=== PATIENT | female | born 1930 | race Caucasian/White ===

== ENCOUNTER → 2016-07-06 | Outpatient (CLI) | payer OTHER, BC ==
--- NOTE | 2016-07-06 16:31 | MA ---
Screening Digital Mammogram With iCAD Analysis Clinical Indications: Routine screening. The patient has had benign breast biopsy. Technique: Standard cephalocaudal and mediolateral oblique projections were obtained. This examinatio n was processed by the [employer] computer aided detection system. Comparison: May 2015, April 2014, March 2014, February 2013, September 2010, August 2009. Breast density: Type B; Scattered fibroglandular densities. Findings: CAD was reviewed. No masses, suspicious calcifications or other signs of malignancy are id entified. There has been no significant change in the appearance of either breast. Vascular calcifi cations are noted. Impression: Negative mammogram. BI-RADS 1. Recommendation: Routine mammographic screening in one year. [facility] will send a result letter to the patient. Negative mammography should not preclude additional workup of a clinically suspicious finding. The patient's information is entered into a reminder system with a target due date for her next mammo gram.
== END ==
LOC: FIMAGING 11:53
DX: Z12.31 Encounter for screening mammogram for malignant neoplasm of breast (principal)
CPT/HCPCS: G0202

== ENCOUNTER 2016-09-11 09:26 | Emergency (ER) | payer OTHER, BC ==
[2016-09-11 09:34] VITALS: PULSE 83; RESP 18; TEMP 98.1
--- NOTE | 2016-09-11 09:41 | EDPHY ---
H & P Stated Complaint: L hip pain since yesterday;no known injury;pain only w/weight bearing HPI/ROS: CHIEF COMPLAINT: Left hip pain. HISTORY OF PRESENT ILLNESS: The patient is an 86-year-old female who presents with atraumatic left posterior hip pain that began yesterday morning when she got up. The pain has worsened steadily over that period of time. It is worsened with walking. She normally walks with a hiking pole (for balance) but has had increased difficulty with this today. She denies numbness, weakness, or paresthesias down her left leg. No dizziness, urinary symptoms, nausea, recent sickness, or other complaints. She has no history of similar symptoms. She has a history of lower back pain and lumbar fusion but this feels different. She is anticoagulated on Eliquis. She has been treating the pain with Tylenol. REVIEW OF SYSTEMS: A ten point review of systems was performed and is negative with the exception of the items mentioned in the HPI. Source: Patient Exam Limitations: No limitations - Personal History Current Tetanus Diphtheria and Acellular Pertussis (TDAP): Unsure Tetanus Vaccine Date: 2007 - Medical/Surgical History Hx Asthma: No Hx Chronic Respiratory Disease: No Hx Diabetes: No Hx Cardiac Disease: Yes Hx Renal Disease: No Hx Cirrhosis: No Hx Alcoholism: No Hx HIV/AIDS: No Hx Splenectomy or Spleen Trauma: No Other PMH: 1. Multiple PEs. 2. HTN. 3. Arthritis - Social History Smoking Status: Never smoked Additional Social History: Nonsmoker. Corey Alfonso. - Physical Exam Exam: General Appearance: Alert. Vital signs reviewed. BP 142/87. Focused exam performed. Respiratory: Lungs are clear to auscultation; no wheezes, rales, or rhonchi. Distant lung sounds. Cardiovascular: Regular rate and rhythm; rub, or gallop. 3/6 murmur. Gastrointestinal: Abdomen is soft and nontender, no masses or organomegaly, bowel sounds normal. Skin: Warm and dry, no rashes on exposed skin, normal color. Back: Nontender to palpation over the thoracolumbar spine. No CVAT. Thoracic Kyphosis. Extremities: Trace bilateral lower extremity edema, no calf tenderness or swelling. Left hip pain with internal and external rotation. Full active range of motion left hip. Pulses: 2+ left femoral pulse. Neurological: Alert and oriented. Moving all four extremities easily and equally. Psychiatric: Normal affect. Constitutional: Initial Vital Signs Temperature (C) 36.7 C 09/11/16 09:28 Heart Rate 83 09/11/16 09:28 Respiratory Rate 18 09/11/16 09:28 Blood Pressure 142/87 H 09/11/16 09:28 O2 Sat (%) 95 09/11/16 09:28 O2 Delivery Mode Room Air Allergies/Adverse Reactions: moxifloxacin HCl [From Avelox] Allergy (Unknown, Verified 09/11/16 09:27) Home Medications: Medication Instructions Recorded Levothyroxine [Synthroid 25 mcg 25 mcg PO DAILY06 01/31/12 (RX)] Lisinopril [Zestril 10 mg (RX)] 10 mg PO DAILY 01/31/12 Apixaban [Eliquis] 5 mg PO 09/11/16 Atorvastatin Calcium [Lipitor 20 20 mg PO DAILY 09/11/16 mg (*)] Carvedilol [Coreg (*)] 6.25 mg PO BIDMEAL 09/11/16 amLODIPine BESYLATE [Norvasc 5 mg 5 mg PO DAILY 09/11/16 (*)] Medical Decision Making - Diagnostics Imaging: X-ray left hip performed and reviewed by me in PACs. No fracture dislocation. Evidence of lumbar spine fusion. ED Course/Re-evaluation: 86-year-old female presents with atraumatic left hip pain since yesterday. This pain is worsened with walking. She denies dizziness, urinary symptoms, or other complaints. On exam she does have some pain with internal and external rotation of the left leg. She localizes the pain to the left posterior hip above the buttock. She is neurovascularly intact distal to the pain. She denies numbness, weakness, or paresthesias down her leg. We will check a left hip x-ray. I independently reviewed the patient's left hip x-ray on the PACS system. 1050: Reassessed patient. Discussed results of x-ray. She is comfortable going home and seeing Dr. Castro next week for reevaluation. We will give her a dose of Tylenol here. She does not take anti-inflammatory medication because she is on a blood thinner. No evidence of fracture dislocation on x-ray. She has a normal neurologic exam. Her pain is not radicular. This could nevertheless be pain emanating from her lumbar spine. Her history has features of bursitis. I do not suspect infection. - Data Points Medications Given: Discontinued Medications Acetaminophen (Tylenol) 650 mg PO EDNOW ONE Stop: 09/11/16 10:57 Last Admin: 09/11/16 11:12 Dose: 650 mg Departure - Departure Disposition: Home, Routine, Self-Care Clinical Impression: Left hip pain Condition: Good Instructions: Hip Pain (ED) Additional Instructions: Take 650mg Tylenol every 4-6 hours while awake as needed for pain. Do not exceed 3000mg Tylenol in one 24 hour period. Follow up with your primary care provider for reevaluation. Call on Tuesday to set up an appointment. You can try some of the over the counter wart medication on your right foot. Return to the emergency department if you experience any serious worsening of condition--unable to walk at all because of pain, redness or warmth of the skin on your hip, fever, new numbness or weakness. Referrals: WILFREDO CASTRO [Primary Care Provider] - As per Instructions Report Scribed for: Joellen Curtis Report Scribed by: Samson Negrete Date of Report: 09/11/16 Time of Report: 09:50 Physician Review and Approval Statement: 09/11/16 09:41 Portions of this note were transcribed by the medical professionals. I, Dr. Joellen Curtis, personally performed the history, physical exam, and medical decision- making; and confirmed the accuracy of the information in the transcribed note.
[2016-09-11] MEDS ORDERED: ACETAMINOPHEN 325 MG TAB PO ONE (10:56)
[2016-09-11 11:14] VITALS: BP 148/71; O2SAT 94
== END 2016-09-11 11:13 | disposition home or self-care (01) ==
DX: M25.552 Pain in left hip (principal); I10 Essential (primary) hypertension

== ENCOUNTER → 2017-04-04 | Outpatient (CLI) | payer OTHER, BC | LOC: BHFA 11:30 | PROVIDERS: ATTEND Internal Medicine Cardiovascular Disease | DX: I35.9 Nonrheumatic aortic valve disorder, unspecified (principal) ==

== ENCOUNTER → 2017-09-01 | Outpatient (CLI) | payer OTHER, BC ==
--- NOTE | 2017-10-18 13:59 | GCON ---
[f rep st] CONSULTATION [facility] CONSULTATION DATE OF CONSULTATION: 06/01/2017 CHIEF COMPLAINT: Wound on plantar surface of 1st metatarsal head. HISTORY OF PRESENT ILLNESS: 86-year-old woman who developed a wound on the plantar aspect of her indu t. She had an abscess. An incision and drainage were performed by her marketing representative. She continues to have pain out of proportion in the area. She had an x-ray as well as an MRI performed. There was n o evidence of osteomyelitis or underlying fluid collection. She has been using an insert in the darby om of her shoe to help redistribute pressure to the area. She denies any redness, swelling, fevers o r chills. She reports that she no longer has an open wound in the area, this has healed and she now has a callus. PAST MEDICAL HISTORY: Hyperlipidemia, hypertension, hypothyroidism, history of PE in 2005 and 2010. ALLERGIES: No known drug allergies. FAMILY HISTORY: Significant for myocardial infarction. SOCIAL HISTORY: She denies tobacco, alcohol or recreational drug use. She has 3 children. REVIEW OF SYSTEMS: 10-point review of systems negative aside from HPI. PHYSICAL EXAMINATION: GENERAL: A pleasant, well-developed, well-nourished woman in no acute distres s. HEENT: Normocephalic, atraumatic. No hearing deficits. Pupils equal and round. No scleral ict erus. Mucous membranes moist. NECK: Trachea midline. RESPIRATORY: Clear to auscultation bilatera lly. No increased work of breathing. CARDIOVASCULAR: No peripheral edema. 2+ DP and PT pulses rig ht lower extremity. SKIN: There is a callus on the plantar surface of her right 1st metatarsal head . There is no open wound. There is no surrounding erythema. Her right foot is nontender to palpati on. PSYCH: Mood and affect normal. NEURO: Grossly intact. IMPRESSION AND PLAN: 86-year-old woman with a callus on the plantar aspect of her right 1st metatars al head. There is no open wound to the area. I recommended a cut out insert to remove pressure from this area to allow pain relief. We also discussed a protective dressing to prevent callus formation . May consider referral to [facility] if the callus reaccumulates. She will return to the clinic as needed. Call with worsening symptoms, questions, or concerns. Case discussed with Dr. Kylee lepe. /[id number]/MODL
== END ==
LOC: FIMAGING 12:07
PROVIDERS: ATTEND Family Medicine
DX: Z12.31 Encounter for screening mammogram for malignant neoplasm of breast (principal); Z85.038 Personal history of other malignant neoplasm of large intestine

== ENCOUNTER → 2018-09-20 | Outpatient (CLI) | payer OTHER, BC | LOC: BHFA 14:00 | PROVIDERS: ATTEND Internal Medicine Cardiovascular Disease | DX: R01.1 Cardiac murmur, unspecified (principal) ==

== ENCOUNTER → 2018-10-09 | Outpatient (CLI) | payer OTHER, BC | LOC: BHFA 16:15 | PROVIDERS: ATTEND Internal Medicine Cardiovascular Disease | DX: I35.1 Nonrheumatic aortic (valve) insufficiency (principal); R01.1 Cardiac murmur, unspecified ==

== ENCOUNTER → 2018-10-24 | Day surgery (SDC) | payer OTHER, BC ==
[~2018-10-24] MED LIST: ASPIRIN EC 325 MG TAB PO ONE; ATROPINE SULFATE 1 MG/10 ML SYR IVP PRN; CLOPIDOGREL BISULFATE 75 MG TAB ONE; CLOPIDOGREL BISULFATE 75 MG TAB PO ONE; DIAZEPAM 5 MG TAB PO ONE; FAMOTIDINE 20 MG TAB PO ONE; HYDROCODONE/APAP 5/325 TAB PO PRN; IOPAMIDOL (ISOVUE 370) 100 ML BTL IV ONE; IOPAMIDOL (ISOVUE-370) 150 ML BTL IV ONE; LIDOCAINE 1% 5 ML SDV ONE; MIDAZOLAM 2 MG/2 ML VIAL ONE; NITROGLYCERIN 0.4 MG BTL SL PRN; NS 1,000 ML IV ONE; ONDANSETRON 4 MG/2 ML VIAL IVP PRN; OXYCODONE/APAP 5/325 TAB PO PRN; diphenhydrAMINE 25 MG CAP PO ONE; fentaNYL 100 MCG/2 ML INJ ONE
--- NOTE | 2018-10-24 06:30 | PDPROPOC ---
Sedation Plan of Care Sedation Plan of Care: mental status noted, patient educated of risks, benefits , alternatives, patient can tolerate sedation ASA Classification: ASA 2 Planned drugs: fentanyl, midazolam Mallampati Score: Class 2 Mallampati Reference Image: Patient passed 3-3-2 rule?: Yes
--- NOTE | 2018-10-24 06:30 | PDHPUP ---
History & Physical Update H&P update statement: This history and physical update is based on an assessment of the patient which was completed after admission or registration (within 24 hours), but prior to the surgery/procedure. H&P update: H&P reviewed & patient examined, no change in patient's condition since H&P completed
[2018-10-24 06:56] LABS: PLATELET COUNT 343 10^3/uL (150-400)
[2018-10-24 07:08] LABS: INR 0.91 (0.83-1.16); PROTIME(PATIENT) 11.9 SEC (12.0-15.0)
--- NOTE | 2018-10-24 08:38 | ECHO ---
[email or web address] [address] Main: [phone] Echocardiography Examination Transthoracic Name: DEMETRIA ROTHMAN MR#: [id number] Study Date: 10/24/2018 Study Time: 07:25 AM Date of : 1930 Age: 88 year(s) Height: 157.5 cm (62 in.) Weight: 59.87 kg (132 lb.) BSA: 1.6 m2 Gender: Female Examination: Limited Echo Contrast: Image Quality: Adequate Rhythm: Heart Rate: BP: / Indication: Aortic stenosis Procedure Staff Referring Physician: Yarn Preparation Supervisor: Latasha Royal [facility] Reading Physician: Terence Espinoza MD Requesting Provider: Ordering Physician: Terence Espinoza MD Indication: Aortic stenosis Measurements Chambers AV/MV Label Value Normal Value Label Value Normal Value LVOTd 2 cm (1.8cm - 2cm) AV PGmax 47 mmHg LVOT VTI 22.6 cm (18cm - 22cm) AV PGmean 26 mmHg LVOT PGmean 2 mmHg AV Vmax 3.43 m/s LVOT Vmean 0.71 m/s BRANDI (VTI) 0.8 cm2 Conclusions Aortic Valve: There is severe aortic stenosis. Aortic Valve Measurements BRANDI (VTI) is 0.8 cm2. Findings Aortic Valve: There is severe aortic stenosis. Aortic leaflets exhibit severe calcification. The aortic valve is trileaflet. Aortic Valve Measurements Patient: DEMETRIA ROTHMAN Study Date: 10/24/2018 Page 1 of 2 07:25 AM AV Vmax is 3.43 m/s. AV PGmax is 47 mmHg. AV PGmean is 26 mmHg. LVOT VTI / AV VTI is 0.26. BRANDI (VTI) is 0.8 cm2. Exam Details Procedure Ordered: Limited Echo Image Quality: Adequate (No Signature Object) Patient: DEMETRIA ROTHMAN Study Date: 10/24/2018 Page 2 of 2 07:25 AM [id number]
--- NOTE | 2018-10-24 10:09 | CPIP ---
[f rep st] INVASIVE CARDIAC PROCEDURE DATE OF PROCEDURE: 10/24/2018 INDICATIONS FOR PROCEDURE: Shortness of breath, severe aortic stenosis. PROCEDURES PERFORMED: 1. Nonselective left groin sheathogram. 2. 7-Stateless sheath in the left common vein. 3. Right heart catheterization with [place] catheter. 4. Bilateral coronary angiography. 5. Abdominal angiogram. HISTORY: Briefly, an 88-year-old female with history of severe symptomatic aortic stenosis. The pat ient has been seen by Dr. Hollingsworth, deemed to be a suitable candidate for transfemoral TAVR. DESCRIPTION OF PROCEDURE: After informed consent, the patient was brought to [facility] where the patient w as prepped in a sterile fashion in the left groin. Using lidocaine, a 7-Stateless sheath in the left co mmon femoral vein and a 6-Stateless sheath in the left common femoral artery verified angiographically. Through the 7-Stateless sheath, a [place] catheter was advanced. Wedge pressure was mean of 12, A-wa ve 17, V-wave 15. PA pressure systolic 39, diastolic 11, mean of 24. RV pressure systolic 37, diast olic 6, and end of 12. RA pressure mean of 6, A-wave 10, V-wave 8. Cardiac output was measured to b e 3.8 by Daniella with a cardiac index of 2.3. AO sat was 95%, PA sat was 70%. The [place] catheter w as removed. A JL4 catheter was advanced to the left coronary. Images of the left coronary showed no rmal left main. Left circumflex artery showed a tiny marginal 1 proximally, healthy termination of c ircumflex in the marginal 2 distally. The LAD was a long vessel which was wrapped around the apex. There was a medium to large diagonal artery, mid portion, which was healthy and free of disease. Aft er these images were obtained, the JR4 catheter was removed. The JR4 catheter advanced to the right coronary artery. 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 This catheter was switched out for the AL1 catheter. The os tium of the RCA was slightly tortuous, but there was no significant disease and the proximal, mid, an d distal RCA was healthy and free of disease. RPDA and RPLS appeared widely healthy and free of dise ase. After these images were obtained, the AL1 catheter was removed. A pigtail catheter was advance d to the descending aorta. Abdominal angiogram showed widely patent distal descending aorta, widely patent common and internal iliac arteries. The CFAs bilaterally had mild plaque disease, but no sign ificant disease. After these images were obtained, the pigtail catheter was removed over the 0.035 w yoselin. Left groin was closed with manual pressure. Patient tolerated the procedure well. No complica tions. IMPRESSIONS: 1. Essentially normal coronary arteries. 2. Mildly reduced cardiac output. 3. Normal pulmonic pressures. 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 PLAN: The patient will have 3 hours bed rest. We will get CTs of the chest, abdomen, and pelvis, as well as carotid ultrasound. The patient will be discharged later home today. Follow up in the offi ce in 1 week's time. She will be seeing Dr. Finnegan tomorrow for evaluation for 2nd surgical opinion for TAVR. /[id number]/MODL
--- NOTE | 2018-10-26 16:04 | CPEKG ---
Test Reason : OPEN Blood Pressure : / mmHG Vent. Rate : 075 BPM Atrial Rate : 076 BPM P-R Int : 179 ms QRS Dur : 070 ms QT Int : 374 ms P-R-T Axes : 020 007 030 degrees QTc Int : 418 ms Sinus rhythm Confirmed by Julian Obregon ([id number]) on 10/26/2018 4:04:31 PM Referred By: Terence Espinoza Confirmed By:Julian Obregon
== END | disposition home or self-care (01) ==
LOC: FCATH 06:02
PROVIDERS: ATTEND Internal Medicine Cardiovascular Disease
DX: I35.0 Nonrheumatic aortic (valve) stenosis (principal); R53.83 Other fatigue; R06.02 Shortness of breath; R06.09 Other forms of dyspnea; I10 Essential (primary) hypertension
CPT/HCPCS: J1644; J2250; J3010; Q9967

== ENCOUNTER 2018-11-06 08:39 | Inpatient (IN) | payer OTHER, BC | END 2018-11-08 12:01 | disposition home or self-care (01) | LOC: F2W 08:39 → F2N 18:37 ==